=== PATIENT | female | born 1975 | race Caucasian/White ===

== ENCOUNTER → 2021-03-03 | Day surgery (SDC) | payer BC, OTHER ==
[~2021-03-03] VITALS: Ht 165.1 cm; Wt 81.6 kg
[~2021-03-03] MED LIST: ALPRAZOLAM 0.50.5 M1 PO; COMBIPATCH 0.01 EACH TRANSDERM; DULOXETINE HCL60 MG PO; METOPROLOL SUCC25 M1 PO; NORCO5 PO; OMEPRAZOLE40 MG PO; PROAIR HFA8.5 GM INH; TIZANIDINE HCL4 M2 PO; TRAMADOL 50 MG50 MG PO; VITAMIN D325 MC5 PO; VITAMIN K100 MCG PO
--- NOTE | ~2021-03-03 | O ---
[facility] [place] [address] OPERATIVE REPORT Name: MALLORY QUIGLEY Room #: REG [facility]..#: [id number] Admission: 03/03/21 Attend Phys: Osman Marks MD Discharge: Date of : 71 Report #: [id number] THIS REPORT FOR: cc: Lucia Arias Rebekah J. DO Abraham,Osman Acevedo MD ~ DATE OF SERVICE: 03/03/2021 PREOPERATIVE DIAGNOSIS: Left knee lateral meniscus tear. POSTOPERATIVE DIAGNOSES: 1. Left knee lateral meniscus tear. 2. 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 3. Grade IV chondromalacia, lateral tibial plateau. 4. 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 PROCEDURES: 1. Left knee arthroscopy with partial lateral meniscectomy. 2. Chondroplasty, patella. SURGEON: Osman Marks MD. SPLUNK DASHBOARD DEVELOPER: Cele Fontana PA-C. ANESTHESIA: LMA. TOURNIQUET TIME: 20 minutes. COMPLICATIONS: None. SPECIMENS: None. CONDITION UPON LEAVING THE OPERATING ROOM: Stable. INDICATIONS FOR PROCEDURE: The patient is a 45-year-old female with lateral-sided left knee pain. She had a previous knee arthroscopy. Repeat MRI scan showed her to have a tear of the lateral meniscus. After discussion with her, she elected for left knee arthroscopy with partial lateral meniscectomy and debridement as needed. DESCRIPTION OF PROCEDURE: Risks, benefits, alternatives, complications were discussed in detail with the patient including but not limited to risk of anesthesia, risk of damage to nerves, arteries, blood vessels, risk for infection, bleeding, risk for continued knee pain, and need for reoperation. Informed consent was obtained from the patient. Left knee was appropriately marked in the preoperative holding area. IV Ancef was given for preoperative [facility] [address] [place] [address] OPERATIVE REPORT Name: MALLORY QUIGLEY Room #: REG [facility].#: [id number] Admission: 03/03/21 Attend Phys: Osman Marks MD Discharge: Date of : 71 Report #: [id number] antibiotics. She was brought to the operating room and placed in supine position on the operating table. LMA anesthesia was induced without complication. Tourniquet was placed on the left thigh. Left lower extremity was prepped and draped in normal sterile fashion. Timeout was performed properly identifying the patient and procedure as well as the instrumentation and implants. All in the operating room in agreement. Left lower extremity was exsanguinated, tourniquet was inflated. Tourniquet time was 20 minutes. Standard anterolateral portal was established with 11 blade through the skin. Arthroscope was introduced in the patellofemoral compartment, diagnostic arthroscopy was undertaken. Patellofemoral compartment was visualized and found to have a grade IV chondromalacia of the apex of the patella. Medial gutter was visualized and found to be without pathology. Medial compartment was visualized and medial portal was established under arthroscopic visualization. Probe was introduced in the medial compartment and there was noted to be an intact medial meniscus. There was a grade II chondromalacia of the medial femoral condyle along the extreme medial border. The notch was visualized and found to be having intact anterior cruciate ligament. Lateral compartment was visualized and found to have inner margin fraying of the body of the lateral meniscus. This was trimmed back to a stable rim with an arthroscopic biter. In addition, there was noted to be a suture with full thickness cartilage loss at the posterior aspect of the lateral tibial plateau. Scope was then placed back in the patellofemoral compartment and chondroplasty of the patella was performed with an oscillating shaver. After this, all fluid was drained from the knee. Knee was injected with 10 mL of 0.5% Marcaine. Incision was closed with 3-0 nylon. Soft dressing of Adaptic, 4 x 4's, Webril, Valerio wrap were applied. The patient tolerated this procedure well and went to recovery room under care of anesthesia postoperatively. By: 1521 1714 Osman Marks MD /shanon
--- NOTE | 2021-03-03 12:07 | EKG ---
[address] [address] ELECTROCARDIOGRAM REPORT Name: MALLORY QUIGLEY Room #: REG [facility]#: [id number] Admission: 03/03/21 Attend Phys: Osman Marks MD Discharge: Date of : 71 Report #: [id number] [facility] Test Date: 2021-03-03 Test Time: 11:50:57 Pat Name: MALLORY QUIGLEY Department: Room: Gender: F Senior Datastage Developer: KLAUS : 1975 Requested By: Osman Marks Order Number: [id number] : Jason Ferrell Measurements Intervals [place] Rate: 81 P: 58 IA: 131 QRS: 14 QRSD: 102 T: 15 QT: 386 QTc: 448 Interpretive Statements Sinus rhythm No previous ECG available for comparison Electronically Signed On 03-03-2021 12:06:58 CDT by Jason Ferrell [email or web address] <ELECTRONICALLY SIGNED> By: Jason Ferrell MD, [facility] 03/03/21 1206 1150 1150 Jason Ferrell MD, FACC /EPI
[2021-03-03 14:05] VITALS: BP 137/71
[2021-03-03 14:26] VITALS: BP 137/71
== END | disposition home or self-care (01) ==
LOC: OR 10:59
PROVIDERS: ATTEND Orthopaedic Surgery
DX: M25.562 Pain in left knee (principal); S83.282A Other tear of lateral meniscus, current injury, left knee, initial encounter; M94.262 Chondromalacia, left knee; J45.909 Unspecified asthma, uncomplicated; F41.9 Anxiety disorder, unspecified; Z98.890 Other specified postprocedural states; Z79.899 Other long term (current) drug therapy; Z88.2 Allergy status to sulfonamides; X58.XXXA Exposure to other specified factors, initial encounter; Y93.89 Activity, other specified; Y92.89 Other specified places as the place of occurrence of the external cause; Y99.8 Other external cause status
CPT/HCPCS: 50010; 50101; 50405; 56526; 57103; 57180; 58577; 58589; 62110; 62900; 70005